=== PATIENT | male | born 1945 | race Caucasian/White ===

== ENCOUNTER 2019-07-09 09:28 | Observation (INO) ==
--- NOTE | 2019-07-09 10:36 | PROVIDER DOCUMENTATION ---
HPI-General Adult - General Chief Complaint: General Adult Stated Complaint: HASNT FELT GOOD FOR 2 WEEKS, DIZZINESS Time Seen by Provider: 07/09/19 10:16 Source: patient Allergies/Adverse Reactions: Patient Allergies Allergy/AdvReac Type Severity Reaction Status Date / Time meperidine HCl * Allergy Severe ANAPHYLAXIS Verified 07/09/19 09:55 [From Demerol] Home Medications: Home Medication List Medication Instructions Recorded Confirmed Last Taken Type Aspirin EC 325 mg PO DAILY 11/12/15 07/09/19 07/08/19 History Losartan/Hydrochlorothiazide 1 each PO DAILY 11/12/15 07/09/19 07/09/19 History [Hyzaar 50-12.5 Tablet] Albuterol Sulfate [Proair Hfa] 8.5 gm IH Q4-6H PRN PRN #1 01/02/17 07/09/19 07/09/19 Rx hfa.[email or web address].[email or web address] Alprazolam [Xanax] 1 tab PO TID PRN 07/09/19 07/09/19 07/08/19 History - History of Present Illness -Gen Adult Nature of Presenting Problems: patient is a 73 yowm presenting to the ED today for dizziness and "not feeling well". he reports he has not felt well for 2 weeks, he went to his PCP last week and was treated for pneumonia. he reports he still has a productive cough. he reports he had one episode of dizziness yesterday and another episode this morning. he denies any syncope. denies CP and SOB. he denies any fever at home. patient is in no distress on assessment. non toxic in appearance. he denies any pain anywhere. patient reports his PCP did not do a chest x-ray but they treated him for pneumonia. Location of Pain/Injury: reports: none Quality of Pain: reports: none Associated Symptoms: reports: cough, dizziness, fatigue, weakness. denies: back/neck pain, chest pain, constipation, diaphoresis, diarrhea, fever/chills, headaches, nausea, seizure, shortness of breath, sensory/motor loss, pain with inspiration, swelling/mass in abdomen, syncope, vomiting Similar Symptoms Previously?: Yes Recently seen or treated by another doctor?: Yes Review of Systems - Adult - REVIEW OF SYSTEMS - ADULT Constitutional: reports: no symptoms reported. denies: chills, fever Eyes: reports: no symptoms reported Ears, Nose, Mouth & Throat: reports: no symptoms reported Cardiovascular: reports: no symptoms reported. denies: chest pain, palpitations, syncope Respiratory: reports: cough. denies: shortness of breath, wheezing Gastrointestinal: reports: no symptoms reported. denies: abdominal pain, diarrhea, nausea, vomiting Genitourinary: reports: no symptoms reported Musculoskeletal: reports: no symptoms reported Integumentary: reports: no symptoms reported Neurological: reports: dizziness/vertigo. denies: headache/migraines, numbness, seizure, slurred speech, syncope Psychiatric: reports: no symptoms reported Endocrine: reports: no symptoms reported Hematologic/Lymphatic: reports: no symptoms reported Allergic/Immunologic: reports: no symptoms reported All Other Systems: Reviewed and Negative Past History - Adult - PAST MEDICAL HISTORY-ADULT Review of Records: reports: Old Records Reviewed, Nursing Assessment Review, Medications Reviewed Major Childhood Illnesses: reports: denies history Cardiovascular: reports: HTN Respiratory: reports: asthma Gastrointestinal: reports: denies history Obstetrical/Gynecological: reports: denies history Genitourinary: reports: denies history Musculoskeletal: reports: denies history Neurological: reports: denies history Endocrine/Immune: reports: denies history Other Conditions: reports: denies history - PRIOR SURGERIES/PROCEDURES Surgical/Procedure History: reports: hernia repair, back/neck, other (cataract ) - PRIOR HOSPITALIZATIONS Prior Hospitalizations: reports: none - IMMUNIZATION STATUS Childhood Immunizations: See Nurse Assessment Flu Vaccine: See Nurse Assessment - FAMILY HISTORY Family History: reviewed, not pertinent - SOCIAL HISTORY Smoking: cigarettes Provider spent 3-5 mins advising pt. on dangers of tobacco.: Discussed manners t o quit use, and f/u contacts for add'l counseling. Physical Exam-General - PHYSICAL EXAM-ADULT Initial Vital Signs Reviewed: Yes - CONSTITUTIONAL General Appearance: appears well, alert, no apparent distress - EYES Eyes: PERRL/EOMI - HEAD, EARS, NOSE, MOUTH & THROAT HENMT: normocephalic/atraumatic, moist mucous membranes, normal ENT inspection - NECK Neck: non-tender, full range of motion, supple - RESPIRATORY Respiratory: chest non-tender, normal breath sounds, no pleuratic chest pain, no respiratory distress, no accessory muscle use, crackles (bilateral lower lobes), rhonchi (bilateral lower lobes). negative: wheezing - CARDIOVASCULAR Cardiovascular: normal peripheral pulses, regular rate, rhythm, no edema, no JVD - GASTROINTESTINAL (ABDOMEN) Abdominal Exam: normal bowel sounds, non tender, soft - LYMPHATIC Lymphatic: no adenopathy - MUSCULOSKELETAL Back Exam: normal inspection, no CVA tenderness, no vertebral tenderness Extremity: normal range of motion, non-tender - SKIN Integumentary: normal color, normal turgor, warm/dry - NEUROLOGIC Neurologic: grossly normal, no motor/sensory deficits - PSYCHIATRIC Psych/Mental Status: normal mood/affect, normal thought content, normal thought process, oriented x 3 Progress - PLAN OF CARE/RESULTS Progress/Plan/Lab Results: Vital Signs - 8 hr 07/09/19 09:42 07/09/19 09:44 07/09/19 10:12 Temperature 97.5 F L Pulse Rate 72 60 63 Respiratory Rate 19 19 16 Blood Pressure 113/55 113/55 120/52 O2 Sat by Pulse Oximetry 100 100 100 Laboratory Results - last 24 hr 07/09/19 09:47 POC Glucose 115 H Orders Category Date Time Status Orthostatic Vital Signs NOW Care 07/09/19 10:29 Ordered Saline Loc NOW Care 07/09/19 10:29 Ordered CHEST-2 VIEWS [RAD] Stat Exams 07/09/19 10:29 Ordered CBC WITH DIFF [HEME] Stat Lab 07/09/19 10:29 Uncollected CK PROFILE [SP CHEM] Stat Lab 07/09/19 10:29 Uncollected COMPREHENSIVE METABOLIC PANEL [CHEM] Stat Lab 07/09/19 10:29 Uncollected PRO B-NATRIURETIC PEPTIDE Stat Lab 07/09/19 10:29 Uncollected TROPONIN T Stat Lab 07/09/19 10:29 Ordered URINALYSIS W/POSS RFLX CULT [URINALYSIS] Stat Lab 07/09/19 10:29 Uncollected EKG [EKG] Stat Ther 07/09/19 10:29 Ordered discussed plan of care with patient and family- they understand and agree with plan of care and deny any questions at this time. Result Diagrams: 07/09/19 10:05 07/09/19 10:05 - EKG 1 Time of EKG reading by physician:: 09:35 EKG Read and Signed by:: Oswaldo Alejandre EKG Interpretation (*Must complete 3 of following elements*): Abnormal Rate: 60 Rhythm: sinus with 1st degree AV block [place]: normal QRS: normal, other (PAC's) OK Interval: normal ST Wave: normal 2 Time of EKG reading by physician:: 10:48 EKG Read and Signed by:: Oswaldo Alejandre EKG Interpretation (*Must complete 3 of following elements*): Abnormal Rate: 85 Rhythm: Atrial fibrillation [place]: normal QRS: normal ST Wave: normal Prior EKG Comparison: changes noted (07/09/19- 934) - XRAY 1 XRAY Study: Chest Impression: See EMR Report (Signed EXAM: CHEST-2 VIEWS HISTORY: cough, dizziness TECHNIQUE: Chest two views COMPARISON: 06/30/2019 FINDINGS: The lungs are well expanded. The heart is mildly prominent. The vessels are not distended. There are no infiltrates. No pleural effusions. Right granuloma. IMPRESSION: No pneumonia Electronically signed by Elmer Benson 07/09/2019 11:30 AM 07/09/19 1130 Interpreting Physician: Elmer Benson MD Dictated Date/Time: 07/09/19 1130 cc: Caitlyn Rivera; Jace Lucas MD) - CONSULTS/PCP/HOSPITALIST Notification #1 *Consult/PCP/Hospitalist*: ASHWIN Mancia Time Discussed: 12:10 Reason/Comments: admit for cardiac consult Consult Disposition: Will see in ED, Admit Departure - Departure Date of Disposition Decision: 07/09/19 Time of Disposition Decision: 12:12 DIAGNOSIS: Dizziness Disposition: ADMITTED INPATIENT 09 Certified Medical Emergency: Emergent Condition: Stable Referrals and Follow-Ups: Jace Lucas MD [Primary Care Provider] - - Critical Care Note This patient required my direct & personal management of CC.: No Attestation - Physician/ JOHN PAUL Attestation Patient care was provided by Advanced Practice Provider:: Yes Advanced Practice Provider:: Caitlyn Rivera Advanced Practice Provider documentation review:: The Mid-level provider documentation, treatment plan and medical decision making was reviewed by the physician who agrees with all treatment and medical decision making by the MLP. The physician spent face to face time with patient:: No Advanced Practice Provider documentation review:: Supervising physician onsite and consulted in the evaluation and care of this patient. The physician did not have a face to face encounter with the patient.
[2019-07-09 10:43] LABS: HEMATOCRIT 45.8 % (42.0-52.0); HEMOGLOBIN 15.3 g/dL (14.0-18.0); RBC 5.68 XMIL (4.7-6.1); WBC 11.75 X1000 (4.8-10.8)
[2019-07-09 10:44] LABS: BASO# 0.05 X1000 (0.0-0.2); BASO% 0.4 % (0.0-0.8); EOS# 0.04 X1000 (0.0-0.7); EOS% 0.3 % (0.0-10.0); IMM GRAN# 0.19 X1000 (0.0-0.04); IMM GRAN% 1.6 % (0.0-0.5); LYMPH# 1.42 X1000 (1.2-3.4); LYMPH% 12.1 % (20.5-51.1); MCH 26.9 PG (27-31); MCHC 33.4 g/dL (33-37); MCV 80.6 FL (81-99); MONO# 1.22 X1000 (0.11-0.59); MONO% 10.4 % (1.7-9.3); NEUT# 8.83 X1000 (1.4-6.5); NEUT% 75.2 % (42.2-75.2); PLT 200 X1000 (130-400); RDW 15.4 % (11.5-14.5)
[2019-07-09 11:00] LABS: ALB/GLOB RATIO 1.5; CALCIUM 8.9 mg/dL (8.8-10.2); CREATININE 1.6 mg/dL (0.7-1.2); POTASSIUM 4.6 mmol/L (3.5-5.1); TOTAL BILIRUBIN 0.65 mg/dL (0.20-1.00); TOTAL PROTEIN 6.6 g/dL (6.3-8.3)
--- NOTE | 2019-07-09 11:33 | Diag Imaging Result Doc PS360 ---
EXAM: CHEST-2 VIEWS HISTORY: cough, dizziness TECHNIQUE: Chest two views COMPARISON: 06/30/2019 FINDINGS: The lungs are well expanded. The heart is mildly prominent. The vessels are not distended. There are no infiltrates. No pleural effusions. Right granuloma. IMPRESSION: No pneumonia Electronically signed by Elmer Benson 07/09/2019 11:30 AM
[2019-07-09 11:56] LABS: URINE SOURCE CLEAN CATCH
[2019-07-09 12:00] LABS: BILIRUBIN URINE NEGATIVE (NEGATIVE); BLOOD URINE NEGATIVE (NEGATIVE); COLOR YELLOW; GLUCOSE URINE NEGATIVE (NEGATIVE); KETONE URINE NEGATIVE (NEGATIVE); LEUKOCYTES URINE LARGE (NEGATIVE); NITRITE URINE NEGATIVE (NEGATIVE); PROTEIN URINE NEGATIVE (NEGATIVE); SP GRAVITY URINE 1.015; TURBIDITY URINE HAZY (CLEAR); UR EPITHELIAL CELLS <10 /HPF (<10); URINE BACTERIA NEGATIVE /HPF; URINE RBC <10 /HPF (<10); URINE WBC TNTC /HPF (<10); UROBILINOGEN URINE NORMAL (NORMAL)
--- NOTE | 2019-07-09 12:58 | EKG Report ---
Test Performed on : 07/09/2019 10:47:39 AM Test Reason : cough, dizziness Blood Pressure : / mmHG Vent. Rate : 079 BPM Atrial Rate : 088 BPM P-R Int : 000 ms QRS Dur : 106 ms QT Int : 406 ms P-R-T Axes : 000 -17 039 degrees QTc Int : 465 ms Atrial fibrillation. Abnormal ECG When compared with ECG of 09-JUL-2019 09:35, (Unconfirmed) Atrial fibrillation. has replaced Sinus rhythm. Unconfirmed Result
[2019-07-09] MEDS ORDERED: NS 1,000 ML IV ONE (13:26)
[2019-07-09] MEDS ORDERED: ZOFRAN IV PRN (13:33)
[2019-07-09] MEDS ORDERED: TYLENOL PO PRN (13:33)
--- NOTE | 2019-07-09 15:46 | HISTORY AND PHYSICAL ---
ADDENDUM: I agree with most of the course of history, physical, assessment and plan. In brief, Mr. Villegas is a 73-year-old man with past medical history of reported irregular heart rhythm, anxiety, essential hypertension, recently outpatient-diagnosed pneumonia, who comes in with chief complaint of persistent dizziness of about 48 hours of duration. The patient states that he has not been feeling well since last 2 weeks, and he had seen his primary care doctor. He was also coughing more than usual and his primary care doctor had prescribed him antibiotics for suspected pneumonia, which he completed the course of today morning. However, yesterday he was feeling so dizzy and he had blurring of his vision. Today morning his dizziness got worse. He denies any positional component to it, though. Thus, decided to come to the emergency room. He denies any chest pain or shortness of breath or palpitation. He denies any feelings of missing beat. He had a previously irregularly irregular heart rhythm for which he was seen by Cardiology, and nuclear medicine stress test and echocardiogram were unremarkable. In the ER, he is found to have acute kidney injury, leukocytosis, pyuria, and intermittent episodes of bradycardia with heart rate as low as 40, so hospitalist team was consulted for further management. At the time of my evaluation, he still feels very weak. He denies any fever. He states he has mild burning while micturition, and he might be peeing more frequently than usual. He is not able to provide exact details of it. VITALS: Temperature of 97.7 degrees, pulse 54, respiratory rate 16, blood pressure 120/60, saturating 100% on room air. PHYSICAL EXAMINATION: GENERAL: Does not appear in acute distress. ORAL CAVITY: Dry. LUNGS: Air entry bilaterally equal. No wheeze, rhonchi, crackles. CARDIOVASCULAR: S1, S2 normal. Irregularly irregular. No murmur, rub or gallop. ABDOMEN: Soft, nontender. EXTREMITIES: No lower extremity edema. LABS: Suggestive of mild leukocytosis. Normal hemoglobin, normal platelet count. He has acute kidney injury. His troponins are negative. Urinalysis has pyuria. Urine culture is pending. IMAGING: Chest x-ray did not have any pneumonia. ASSESSMENT: 1. Clinical volume depletion. 2. Suspected acute cystitis leading to urinary tract infection. 3. Acute kidney injury. 4. Suspected acute bronchitis. 5. Sinus node dysfunction. 6. Orthostatic hypotension. PLAN: I will rehydrate Mr. Villegas with intravenous fluid resuscitation, start him on empiric antibiotics for acute cystitis and follow up with urine culture results. His initial troponins is negative. He denies any chest pain to suggest an acute coronary syndrome. He currently has intermittent sinus node dysfunction and atrial fibrillation with aberrancy- like rhythm, though he also appears volume depleted. If his heart rhythm continues to be like this despite volume repletion, he may need electrophysiology evaluation. I will consult Cardiology for it. Plan of care discussed with him. I will continue to monitor patient in cardiac telemetry unit. cc: Sanket Tineo MD MTDD
--- NOTE | 2019-07-09 16:08 | HISTORY AND PHYSICAL ---
PRIMARY CARE PROVIDER: Dr. Jace Lucas. CHIEF COMPLAINT: Dizziness. HISTORY OF PRESENT ILLNESS: Mr. Javier Villegas is a 73-year-old, male with a medical history of COPD, hypertension, atrial fibrillation, on aspirin therapy, and bilateral carotid stenosis. Surgery ruled out by Dr. Martinez. Now presents with complaints of dizziness. Apparently yesterday while he was having some car work, he was out in the heat and got hot, dizzy, pain into the neck down into the left shoulder with numbness and tingling in the left arm some blurry vision. [place] like his eyes were just aching, became sweaty and diaphoretic and felt like he was going to pass out but did not. Symptoms went away. Then again this morning around 7:30 while he was at work, he started having the exact same symptoms return except at this time he was also nauseated. He called his boss who then called an ambulance who brought him here. He was found to be with orthostatic hypotension. Very symptomatic, never passed out. Heart rhythm anywhere from a first-degree AV block, to an atrial fibrillation with a rate control and sometimes bradycardic with rate viewed as low as in the 30s but very temporary. Does not take any beta blockers at home but does have a antihypertensive that he takes and did take this morning which is Hyzaar. Will admit to PVC given the rhythm changes so frequently and the rate drop into the 30s occasionally and we will consult Cardiology. It is noted that he has had complaints of upper respiratory infection type symptoms. When he went to his primary care provider a week ago, he sent him for a chest x-ray, which did not show pneumonia but given his symptoms was treated as if he had pneumonia. He states he took antibiotics and took his last dose this morning but was unable to tell me the antibiotic it was he had and he was also using inhalers. He also complains of continuing to have yellow productive cough. Denies any fever, no shortness of breath[place] [id number]. He also has some acute kidney injury or dehydration. PAST MEDICAL HISTORY: 1. Hypertension. 2. COPD with fingernail clubbing. 3. Atrial fibrillation. Takes aspirin. 4. History of bilateral carotid artery stenosis of 60 to 79 percent per imaging January 2018. He was evaluated by Dr. Martinez but no surgery was performed. 5. Seems to have some issues with short-term memory. Somewhat of a poor historian during interview. SURGICAL HISTORY: 1. Bilateral inguinal hernia repair. 2. Back surgery. 3. Bilateral cataract surgery. SOCIAL HISTORY: Less than half pack per day for 30 years. One can of dip every 2 days. Denies alcohol or illicit drug use. Lives at home with his . His daughter and her boyfriend stay there. He has grand kids that visit frequently. 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 FAMILY HISTORY: Mother had heart disease. Father had lymphoma. Uncle with stomach cancer. An aunt with mouth cancer, another aunt with female, he felt like was female cancer they thought was uterine. A brother that at 68 from an [place]. He has another sister that is 69 and he is unsure of all her medical conditions. ALLERGIES: Demerol caused anaphylaxis. HOME MEDICATIONS: 1. Aspirin enteric-coated 325 mg p.o. daily. 2. Hyzaar 50/12.5 mg p.o. daily. 3. Xanax. 0.5 mg p.o. t.i.d. p.r.n. 4. Albuterol every 4 to 6 hours p.r.n. REVIEW OF SYSTEMS: Fourteen point review of systems are complete and all were negative except for those mentioned above HPI. PHYSICAL EXAMINATION: VITAL SIGNS: Temperature 97.5 degrees, heart rate 54, respiratory rate 16, blood pressure 119/66, O2 saturation 95% on room air. GENERAL: Mr. Javier Villegas is a 73-year-old, male. He is in no acute distress. He seems very dehydrated, dry skin, dry eyes, dry mouth. He is able answer questions appropriately. HEENT: Atraumatic, normocephalic. Pupils equal, round, reactive to light. Extraocular movements intact. Mucous membranes very dry. NECK: Trachea midline. CARDIOVASCULAR: S1, S2 but occasionally irregularly irregular bradycardic rate and rhythm. No rubs, gallops, or murmurs. No lower extremity edema. +2 dorsalis and radial pulses. Negative JVD or carotid bruits. PULMONARY: Clear to auscultation. Bilateral breath sounds. No accessory muscle use or work of breathing noted. GI: Soft, nontender, nondistended. Positive bowel sounds x4. EXTREMITIES: Moves all extremities equally. Full range of motion. NEUROLOGIC: A and O x3. Follows commands. Sensory is intact. SKIN: Warm, dry, intact. LABORATORY DATA: White blood cells 11,000, hemoglobin 15, hematocrit 45, platelet count 300,000. Sodium 138, potassium 4.6, BUN 35, creatinine is 1.6, glucose 82. Calcium 8.9, magnesium 2.1, bilirubin 0.65, AST 15, ALT 15. CK 75, troponin less than 0.01. ProBNP 433. Albumin 4.0. Urinalysis large leukocytes, too numerous to count white blood cells. IMAGING: Chest x-ray, no pneumonia. EKG atrial fibrillation, rate 79. ASSESSMENT/PLAN: 1. Near syncope. Severely dizzy spells likely secondary to the orthostatic hypotension he has developed which is likely secondary to taking antihypertensives along with being dehydrated. We will get an echo. It is also noted that he has got dysrhythmias anywhere from atrial fibrillation to sinus with very long first-degree to possibly even a second- degree [place] so we will consult cardiology. He does state that he was worked up by Cardiology about a year ago with Dr. Castellanos. He was diagnosed with his atrial fibrillation, at that time. Make sure his electrolytes stay replaced. He will get IV fluid hydration for the dehydration and we will check orthostatic vital signs q.12 hours until he is more stable. Will also hold the antihypertensive. 2. Hypertension but currently with orthostasis, so will hold antihypertensive. 3. Acute kidney injury secondary to dehydration. He will get a L fluid bolus and then normal saline at 75 an hour. We will recheck BUN and creatinine in the morning. 4. Recent treatment for pneumonia that I do not actually truly believe was diagnosed as pneumonia but he was on antibiotics and inhalers. He does state that he continues to have [place] [id number] so will go ahead and get a sputum culture. He completed his antibiotics this morning but is unable to give a description of what antibiotic he was on. 5. Chronic atrial fibrillation. Continue with aspirin therapy and will evaluate other rhythms and await Cardiology recommendations. 6. COPD, no exacerbation but he does have fingernail clubbing. He has had this for a long time. He states that he used to be followed for it. Not on anything at home as far as maintenance drugs. We will have nebulizers here, albuterol, Atrovent and budesonide. 7. Bilateral carotid stenosis per imaging January 2018 with a stenosis bilaterally of 60 to 79 percent. He states that he was evaluated by Dr. Martinez in [place] and ruled out, no need for surgery. 8. Tobacco abuse. Cessation discussed. 9. Deep venous thrombosis prophylaxis. Lovenox low dose. Dictated by ASHWIN Mancia for Sanket Tineo MD cc: ASHWIN Mancia MD I agree with most components of history, physical, assessment and plan. A separate addendum has been dictated. [facility]
[2019-07-09] MEDS: NS 1,000 ML IV SCH (16:38)
[2019-07-09] MEDS: ROCEPHIN 1 GM in NS 50 ML IV SCH (16:39)
[2019-07-09] MEDS: DUONEB (A & A) INH SCH ×2 (17:03→21:51)
--- NOTE | 2019-07-09 19:07 | CONSULTATION ---
DATE OF CONSULTATION: 07/09/2019 CARDIOLOGY CONSULTATION NOTE: IMPRESSION: 1. Postural lightheadedness due to orthostatic hypotension. 2. Bradycardia. Appears to be related to first-degree AV block with periods of Mobitz 1 second- degree AV block. There has been no syncope. 3. Hypertension. 4. Chronic obstructive pulmonary disease. 5. Peripheral vascular disease with bilateral carotid artery stenosis based on previous carotid Doppler study. The patient being managed with continue clinical observation by Vascular Surgeon, Dr. Martinez, in [place]. RECOMMENDATIONS: 1. Agree with intravenous volume replacement. 2. Monitor on telemetry. 3. Follow up echocardiography. 4. Consider outpatient ambulatory ECG monitor with event recorder. HISTORY: This 73-year-old white male with past history of COPD, hypertension, sinus arrhythmia, first degree AV block, and bilateral carotid artery disease was admitted with postural lightheadedness for the past 24 to 48 hours. He has not had syncope. He relates that he recently had problems with cough and chest congestion and was felt to possibly have a respiratory infection. This was ruled out, according the patient, after further testing. He has not felt well for the last 2 or 3 days and has not been eating well. He relates that yesterday when he would stand up he would become weak and lightheaded. There was no syncope nor palpitations. 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 He relates that he would get lightheaded and weak when he would stand up. Again, there were no palpitations nor syncope and symptoms would improve when he would sit down. He has been found to have significant postural drop in blood pressure. Additionally, while monitored on telemetry he has demonstrated episodes of bradycardia and irregular rhythm. For this reason, Cardiology was consulted. It is noteworthy that he had evaluation with stress myocardial perfusion study in March 2018 which was negative for evidence of inducible myocardial ischemia. Previous carotid Doppler study indicated bilateral carotid disease and he had subsequent consultation with Dr. Martinez of Vascular Surgery in [place] who is following his carotid disease and monitoring clinically. Surgical intervention was not felt to be needed. PAST MEDICAL HISTORY: 1. Hypertension. 2. Tendency for sinus arrhythmia and first-degree AV block. 3. Chronic obstructive pulmonary disease. 4. Bilateral carotid artery disease. PAST SURGICAL HISTORY: Includes bilateral inguinal hernia repair, unspecified back surgery, bilateral cataract surgery. ALLERGIES: He is allergic or intolerant of Demerol. MEDICATIONS PRIOR TO ADMISSION: As listed. SOCIAL HISTORY: He currently works part-time as a network security engineer. He has history of smoking less than a half-pack a day for approximately 30 years. He does not use alcohol. He is and lives with his . FAMILY HISTORY: Negative for premature coronary disease. REVIEW OF SYSTEMS: Pulmonary: Negative beyond history of present illness. Constitutional: Negative beyond history of present illness. Gastrointestinal: Negative beyond history of present illness. Remainder of review of systems negative/noncontributory beyond history of present illness with 14 total systems reviewed. PHYSICAL EXAMINATION: General: This is a pleasant, older, white male in no distress. Vital signs: Blood pressure 119/63, heart rate 69, oxygen saturation 99%. HEENT: Extraocular movements appear intact. Mucous membranes are moist. Neck: Supple without jugular venous distention. There are no carotid bruits. Chest: Clear to auscultation. Cardiac: Reveals a regular rate and rhythm without appreciable murmur or gallop. Abdomen: Soft. Bowel sounds are normal. Extremities: Without edema. LABORATORY DATA: Includes a white blood cell count 11.75, hematocrit 45.8, hemoglobin 15.3, platelet count 200,000. Sodium 138, potassium 4.6, chloride 100, carbon dioxide 24, BUN 35, creatinine 1.6, glucose 115. Troponin-T less than 0.01. TSH 5.53. PERTINENT DATA: Twelve-lead EKG demonstrates sinus rhythm with second-degree AV block, Mobitz 1. cc: Kin Rodriguez MD
[2019-07-09] MEDS: PULMICORT INH SCH (21:51)
[2019-07-10] MEDS: DUONEB (A & A) INH SCH ×4 (03:53→21:00)
--- NOTE | 2019-07-10 04:51 | EKG Report ---
Test Performed on : 07/09/2019 09:35:44 AM Test Reason : dysrythmia Blood Pressure : / mmHG Vent. Rate : 060 BPM Atrial Rate : 060 BPM P-R Int : 270 ms QRS Dur : 102 ms QT Int : 432 ms P-R-T Axes : 085 -27 035 degrees QTc Int : 432 ms Sinus rhythm. with 1st degree AV block. with premature atrial complexes. Otherwise normal ECG When compared with ECG of 12-MAR-2018 09:59, premature atrial complexes. are now present Unconfirmed Result
[2019-07-10] MEDS: NS 1,000 ML IV SCH ×2 (05:17→18:31)
[2019-07-10 05:38] LABS: INR 1.04; PROTIME 13.8 Seconds (11.0-16.0)
[2019-07-10 05:39] LABS: BASO# 0.02 X1000 (0.0-0.2); BASO% 0.3 % (0.0-0.8); EOS# 0.04 X1000 (0.0-0.7); EOS% 0.5 % (0.0-10.0); HEMATOCRIT 40.1 % (42.0-52.0); HEMOGLOBIN 13.6 g/dL (14.0-18.0); IMM GRAN# 0.06 X1000 (0.0-0.04); IMM GRAN% 0.8 % (0.0-0.5); LYMPH# 1.62 X1000 (1.2-3.4); LYMPH% 21.6 % (20.5-51.1); MCH 27.3 PG (27-31); MCHC 33.9 g/dL (33-37); MCV 80.5 FL (81-99); MONO# 0.72 X1000 (0.11-0.59); MONO% 9.6 % (1.7-9.3); NEUT# 5.05 X1000 (1.4-6.5); NEUT% 67.2 % (42.2-75.2); PLT 166 X1000 (130-400); PTT 37.4 Seconds (22.3-41.8); RBC 4.98 XMIL (4.7-6.1); RDW 15.2 % (11.5-14.5); WBC 7.51 X1000 (4.8-10.8)
[2019-07-10 06:40] LABS: CREATININE 1.2 mg/dL (0.7-1.2); POTASSIUM 3.7 mmol/L (3.5-5.1)
[2019-07-10 06:41] LABS: ALB/GLOB RATIO 1.2; ALBUMIN 3.3 g/dL (3.5-5.0); CALCIUM 8.7 mg/dL (8.8-10.2); MAGNESIUM 1.9 mg/dL (1.5-2.7); TOTAL BILIRUBIN 0.52 mg/dL (0.20-1.00)
[2019-07-10] MEDS: ASPIRIN EC PO SCH (08:22)
[2019-07-10] MEDS: LOVENOX SUBQ SCH (08:22)
--- NOTE | 2019-07-10 09:26 | PROGRESS NOTE ---
DATE: 07/10/2019 INTERVAL HISTORY: No acute events overnight. He continued to have intermittent episodes of tachycardia and bradycardia, but in the morning time, he feels significantly better. He feels stronger. He denies any new symptoms. Denies chest pain or shortness of breath. Denies palpitations. He is making a good amount of urine. OBJECTIVE: Vital Signs: Temperature 97.8 degrees, pulse 54, respiratory rate 16, blood pressure 120/40, he is saturating 98% on room air. His orthostatic vitals appear significantly better, and he does not have orthostatic hypotension this morning. General: Does not appear in any acute distress. HEENT: Oral cavity is moist. Lungs: Air entry bilaterally equal. No wheeze, rhonchi, or crackles. Cardiovascular: S1, S2 normal. Irregularly irregular. No murmur, rub, or gallop. Abdomen: Soft, nontender. Extremities: No lower extremity edema. LABORATORY DATA: Labs are suggestive of improved leukocytosis, microcytic anemia, normal platelet count, normal coagulation. He has improving acute kidney injury. IMAGING: No current imaging. ASSESSMENT AND PLAN: 1. Clinical volume depletion leading to orthostatic hypotension and dizziness on presentation. The only identifiable culprit could be his hydrochlorothiazide, which I have held. His orthostatic vitals are improving. I will continue intravenous fluids for 1 more day. I will also continue him on diet. I will replete his potassium, and follow up with BMP tomorrow. 2. Acute kidney injury, likely because of volume depletion. Continue intravenous fluid resuscitation. Follow up BMP. 3. Sinus node dysfunction with episodes of sinus bradycardia, sinus arrhythmia, Mobitz 1 block. Follow up with echocardiogram. He does not have any symptoms of it. Cardiology on board. Appreciate recommendations. 4. Suspected acute cystitis leading to urinary tract infection, which could have been another potential contributor to his volume depletion. Follow up with urine culture, and continue intravenous ceftriaxone until final culture result comes back. 5. Suspected acute bronchitis. His cough is better. His streptococcal urine antigen are in lab. 6. Disposition. I will continue to monitor the patient inside the hospital. Plan of care discussed with him. His questions have been answered. cc: MD ENEIDA Spencer
[2019-07-10] MEDS: PULMICORT INH SCH ×2 (10:28→21:00)
[2019-07-10] MEDS: KLOR-CON PO SCH ×2 (11:32→13:35)
[2019-07-10] MEDS: ROCEPHIN 1 GM in NS 50 ML IV SCH (15:08)
--- NOTE | 2019-07-10 15:52 | PROGRESS NOTE ---
DATE: 07/10/2019 SUBJECTIVE: Patient relates that his postural lightheadedness has resolved after intravenous fluid administration. He reports feeling much better. He does admit to having some dysuria. There has been no chest discomfort or shortness of breath. OBJECTIVE: Blood pressure 129/64, heart rate 96, oxygen saturation 98% on room air. There is no significant jugular venous distention. Chest: Clear to auscultation. Cardiac Examination: Reveals a regular rate and rhythm without appreciable murmur, rub, or gallop. There is no evidence of peripheral edema. Laboratory Data: Includes a white blood cell count of 7.51, hematocrit 40.1, hemoglobin 13.6, platelet count 166,000. Sodium 138, potassium 3.7, chloride 107, carbon dioxide 20, BUN 27, creatinine 1.2, glucose 110. initial troponin less than 0.010 with followup troponin less 0.01. TSH 5.53. IMPRESSION: 1. Orthostatic hypotension. Patient has improved with intravenous volume administration. 2. Abnormal cardiac rhythm. Patient appears to be in first-degree atrioventricular block with periods of Mobitz 1, second-degree atrioventricular block. There has been no syncope. 3. Hypertension. 4. Chronic obstructive pulmonary disease. 5. Peripheral vascular disease. RECOMMENDATIONS: 1. Continue to monitor cardiac rhythm while patient is here. 2. It would be reasonable for patient to be discharged soon. 3. Favor outpatient ambulatory ECG monitor at time of discharge with event recorder. cc: Kin Rodriguez MD
--- NOTE | 2019-07-10 22:08 | ECHO REPORT ---
ORDER DATE: 07/09/2019 MEASUREMENTS: Septal thickness 0.8, left ventricular internal diameter in diastole 4.5, posterior wall thickness 0.8, left ventricular internal diameter in systole 3.0, aortic root 3.2. SUMMARY: 1. Technically difficult study due to limited acoustic window quality. 2. Aortic valve is trileaflet and opens normally on 2-dimensional images. Peak gradient across aortic valve is less than 10 mmHg. Mitral, tricuspid, and pulmonic valves are without evidence of structural abnormality with trace mitral regurgitation, mild tricuspid regurgitation, and mild pulmonic insufficiency. The estimated systolic PA pressure by Doppler is 30 mmHg. Aortic root is normal in size. 3. Normal left ventricular dimensions demonstrated. Estimated left ventricular ejection fraction appears to be at least 65%. No regional wall motion abnormalities are evident. Left atrium, right atrium, right ventricle are normal in size with grossly preserved right ventricular systolic function. 4. No pericardial effusion. 5. Inferior vena cava not well demonstrated. cc: MD Holly Rodrigez CRNP
[2019-07-11] MEDS: DUONEB (A & A) INH SCH ×2 (03:32→11:28)
[2019-07-11] MEDS: NS 1,000 ML IV SCH (05:39)
[2019-07-11 07:42] VITALS: BP 147/68
--- NOTE | 2019-07-11 07:52 | EKG Report ---
Test Performed on : 07/09/2019 5:23:21 PM Test Reason : NO EKG ORDER FOR MUSE Blood Pressure : / mmHG Vent. Rate : 067 BPM Atrial Rate : 078 BPM P-R Int : 000 ms QRS Dur : 102 ms QT Int : 418 ms P-R-T Axes : 030 -30 020 degrees QTc Int : 441 ms Sinus rhythm. with 2nd degree AV block (Mobitz I). Left axis deviation Abnormal ECG When compared with ECG of 09-JUL-2019 10:48, (Unconfirmed) Sinus rhythm. has replaced Atrial fibrillation. Confirmed by Sadiq RUBIO MPatricia Verdugo ([id number]) on 07/12/2019 12:05:23 PM
[2019-07-11 07:55] LABS: AGAP 10; BUN 20 mg/dL (8-22); CALCIUM 8.5 mg/dL (8.8-10.2); CHLORIDE 108 mmol/L (98-107); COSMO 277; CREATININE 0.9 mg/dL (0.7-1.2); ESTIMATED GFR > 60; GLUCOSE 110 mg/dL (70-104); POTASSIUM 4.1 mmol/L (3.5-5.1); SODIUM 137 mmol/L (136-145); TCO2 19 mmol/L (25-35)
[2019-07-11] MEDS: LOVENOX SUBQ SCH (10:28)
[2019-07-11] MEDS: ASPIRIN EC PO SCH (10:28)
[2019-07-11] MEDS ORDERED: PREVNAR 13 IM ONE (11:08)
[2019-07-11] MEDS: PULMICORT INH SCH (11:28)
--- NOTE | 2019-07-11 14:38 | DISCHARGE SUMMARY ---
ADMISSION DATE: 07/09/2019 DISCHARGE DATE: 07/11/2019 DISCHARGE DISPOSITION: Home. DISCHARGE CONDITION: Hemodynamically stable. He does not have any more orthostatic hypotension. He is able to walk in the hallway without any difficulty. Cardiology team would send him an event monitor through mail. Return to work slip has been provided. DISCHARGE DIAGNOSES: 1. Clinical volume depletion. 2. Orthostatic hypotension leading to dizziness in the setting of antihypertensive medication use, hydrochlorothiazide/losartan use. 3. Acute kidney injury due to volume depletion. 4. Irregular heart rhythm with marked sinus bradycardia, sinus arrhythmia, Mobitz type 1 2nd degree heart block with suspected sinus node dysfunction though asymptomatic. 5. Acute cystitis ruled out. 6. Likely acute viral bronchitis. OTHER DIAGNOSES: 1. History of essential hypertension. 2. History of anxiety. 3. History of active tobacco abuse. The patient was counseled about not smoking. 4. Questionable history of irregular heart rhythm or atrial fibrillation. 5. History of bilateral carotid artery stenosis 60 to 80 percent in January 2018 for which he was recommended medical management. DISCHARGE MEDICATIONS: 1. Aspirin 325 mg daily. 2. Losartan 25 mg daily. He was advised to check his blood pressure and discussed with his regular doctor about adjusting dose. His hydrochlorothiazide/ losartan was discontinued. 3. Albuterol sulfate 8.5 gram inhaled every 6 hours as needed for shortness of breath. 4. Alprazolam 0.5 mg t.i.d. as needed for anxiety. VITALS: At the time of discharge: Temperature 97.7 degrees, pulse 67, respiratory 22, blood pressure 140/60, saturating 98% on room air. Orthostatic vitals are negative. PHYSICAL EXAMINATION: General: He does not appear in any acute distress. HEENT: Oral cavity is moist. Lungs: Air entry bilaterally equal, no wheeze, rhonchi or crackles. Cardiovascular: S1, S2 normal. No murmur or gallop. He does have irregularly irregular heart rhythm. Abdomen: Soft, nontender. Extremity: No lower extremity edema. Neurologic: He is alert oriented x3. SIGNIFICANT LABS: At the time of discharge: WBC 7.5, hemoglobin 13.6, platelet 166,000, potassium 4.1, BUN 20, and creatinine of 0.9. On admission he had BUN of 35 and creatinine 1.6. SIGNIFICANT MICRO: Sputum culture had normal raheem. Urine culture did not have any growth. SIGNIFICANT IMAGING: Chest x-ray had no pneumonia. Echocardiogram had normal left ventricular ejection fraction of 65% without any regional wall motion abnormality without any significant valvular heart disease. EKG on admission had sinus rhythm with first-degree AV block. HOSPITAL COURSE SUMMARY: Mr. Villegas is 73 years old man with the above- mentioned past medical history including irregular heart rhythm for which he underwent nuclear medicine stress test in 2018, came in with chief complaints of dizziness of about 2 days duration. Apparently, he has been also having some shortness of breath and cough since 2 weeks duration for which he had seen his regular doctor and he was given antibiotic treatment the name of which he could not remember. With taking antibiotic his shortness of breath did not get better, but since last 2 days, he started becoming sweaty and diaphoretic and felt like he was going to pass out but did not. The symptoms were more prominent at the time of getting up from the chair and so he decided to come to the emergency room. In the emergency room, he was found to have significant orthostatic hypotension with his systolic blood pressure dropping to 60/40 on standing up, whereas his sitting blood pressure was 90/60. He was also found to have acute kidney injury. It was thought he had profound volume depletion because of poor oral intake as well as use of hydrochlorothiazide. His antihypertensive medications were stopped and he was resuscitated with intravenous fluids. His oral intake also improved and at the time of discharge he has systolic blood pressure of more than 140 mmHg without any orthostatic signs. He was restarted on small dose of losartan and was advised to follow up with his regular doctor. Though he had pyuria and cough on presentation, they were improving at the time of discharge. He did not have significant urinary symptoms and urine culture and sputum culture were negative. During hospital admission, he was noted to have marked bradycardia episode with heart rate as low as 40, though he was asymptomatic. Telemetry and EKG evaluation had suggested mixed rhythm including sinus bradycardia with first-degree AV block, Mobitz type 1 block with suspected sinus node dysfunction, though he was asymptomatic of this cardiac arrhythmia. The cardiology team evaluated and had recommended outpatient event monitor which he will be provided. TIME SPENT: More than 30 minutes were spent discharging the patient. All of his questions were satisfactorily answered. cc: MD ENEIDA Spencer
--- NOTE | 2019-07-12 12:05 | EKG Report ---
Test Performed on : 07/10/2019 06:18:03 AM Test Reason : dysrythmia Blood Pressure : / mmHG Vent. Rate : 064 BPM Atrial Rate : 064 BPM P-R Int : 312 ms QRS Dur : 104 ms QT Int : 430 ms P-R-T Axes : 072 -23 038 degrees QTc Int : 443 ms Sinus rhythm. with marked sinus arrhythmia. with 1st degree AV block. Otherwise normal ECG When compared with ECG of 09-JUL-2019 17:23, (Unconfirmed) Sinus rhythm. is no longer with 2nd degree AV block (Mobitz I). Confirmed by Keysha Babcock MD ([id number]) on 07/12/2019 12:05:53 PM
== END 2019-07-11 12:34 | disposition home or self-care (01) ==
LOC: SUPCPDRO → ED 09:28 → 2N 13:48 → INTOOBSV 13:48
PROVIDERS: ATTEND Internal Medicine